=== PATIENT | male | born 1980 | race Caucasian/White ===

== ENCOUNTER 2024-05-07 12:15 | Inpatient (IN) | payer OTHER, SELFPAY ==
--- NOTE | 2024-05-07 08:36 | ED.GENMED ---
History of Present Illness
General
Chief Complaint: Seizure
Source: patient, records and ambulance crew
Exam Limitations: none
Time Seen by Provider: 05/07/24 08:33
Nursing documentation reviewed up to this point in time: agreed with
History of Present Illness
History of Present Illness:
43-year-old male presents emergency department after a seizure. His sister noted a seizure this morning where he was unresponsive with stiffening in all limbs. EMS noted 30 second seizure at about 735 on arrival. He has a history of seizures but
is not on any antiepileptic medication.
Past History
Past History
ED Past Medical History: GERD, HTN, NIDDM, Hypothyroidism, Psychiatric (generalized anxiety disorder, major depression) and Other (gout, frequent headaches, ETOH abuse, Pancreatitis, avascular necrosis of the right hip)
ED Past Surgical History: Appendectomy and Other (cyst removal)
Social History
Tobacco: Smoker
Alcohol: Binge drinker
Drug: Other
Personal: Single
Living: with family (mother)
Employment: Not employed
Family History
Family History: CAD
Review of Systems
Review of Systems
Allergies reviewed?: Yes
All Other Systems: Not applicable
Constitutional: Reports no symptoms; Denies fever
EENT: Reports no symptoms
Respiratory: Reports no symptoms
Cardiac: Reports no symptoms
ABD/GI: Reports no symptoms
: Reports no symptoms
Musculoskeletal: Reports no symptoms
Skin: Reports no symptoms
Neurological: Reports other (Seizure)
Endocrine: Reports no symptoms
Hematologic/Lymphatic: Reports no symptoms
Psychiatric: Reports no symptoms
Phy Exam
Physical Exam
Physical Exam:
Physical Exam
General: Awake, afebrile
Neck: supple. no meningeal signs. normal posterior pharynx
Heart: s1/s2 regular rate and rhythm, no murmur. equal radial
pulses.
HEENT: Pupils equal round reactive to light, EOMI, dried blood in mouth
Lungs: no acute respiratory distress. clear bilaterally
Abdomen: normal bowel sounds. not tender. no CVAT
Neuro: alert and oriented. no focal neurological deficits cranial nerves II through XII intact
Skin: no rash
Psychiatric: well kept. interactive and cooperative
Extremities: no edema. no calf tenderness. negative homans. good distal pulses
Course
Orders/Labs/Results
Orders:
Orders
05/07/24 Breakfast
1800 calorie (15 carb) Diabetic
At Your Request: Full Participation
05/07/24 08:33
Electrocardiogram (*1) Stat
Reason for Study: Other
Other Reason for Exam: seizure
EKG- Treatment ONCE
IV Insert/Care/Rem.- Treatment PRN
Levetiracetam Injectable [Keppra] 1,000 mg IV NOW STA
05/07/24 08:40
Levetiracetam Injectable [Keppra] 3,000 mg IV NOW STA
05/07/24 08:48
Shoulder, Right 2 Views [CR Shoulder - Right Min 2 View] Urgent
Comment:
Reason For Exam: right shoulder pain after seizure
05/07/24 08:50
Complete Blood Count/With Diff Urgent
Comprehensive Metabolic Panel Urgent
Creatine Phosphokinase Urgent
Comment: ADD ON
Free T4 Urgent
Glycohemoglobin (HgbA1c) Urgent
TSH Reflex To Free T4 Urgent
Comment: ADD ON
05/07/24 09:44
0.9% Sodium Chloride 1000 ml [Nss] 1,000 ml IV BOLUS
05/07/24 09:47
Add On- LAB Stat
Tests Added?: ck
05/07/24 09:57
EEG, 41-60 minutes Routine
Reason for Exam: Epilepsy
05/07/24 09:58
CT Head W/o Iv Contrast Urgent
Comment:
Reason For Exam: seizures
05/07/24 10:00
Urine Reflex Culture from UA [Urinalysis Reflex To Culture] Urgent
Lactated Ringers [Lr] 1,000 ml IV 150 mls/hr
05/07/24 10:02
Add On- LAB Routine
Tests Added?: tsh with reflex free t4, hgba1c
Drug Screen, Urine [Urine Drug Abuse Screen] Urgent
05/07/24 10:03
NEUROLOGY CONSULT Routine
Consulting Provider: Casey Cevallos
Was physician already notified: Yes
05/07/24 10:48
Blood Culture Q30M
GONZÁLEZ Source: Blood/Venous
Specimen Description:
Blood Culture Q30M
GONZÁLEZ Source: Blood/Venous
Specimen Description:
05/07/24 12:04
Admit/Transfer Patient As Directed
Co-Sign Provider:
Level of Care: Inpatient admission
Assign to:: Telemetry
Physician / Group: [email or web address]/medicine
Transfer to: Telemetry
Diagnosis: seizures, jewel
Reason for Telemetry: Arrhythmia
Date to Stop Telemetry: 05/10/24
Time to Stop Telemetry: 11:00
Reason for Hospitalization: seizures, jewel
Expected length of stay greater than two midnights?: Yes
ELOS- Estimated Length of Stay in days: 3
I certify the patient meets the requirements for IP care: Yes
05/07/24 12:07
Code Status As Directed
Resuscitation Status: Full Code
05/07/24 14:38
Bisacodyl [Dulcolax] 10 mg RECTAL [id number] PRN
Docusate W/Senna [Senokot-S] 1 tablet PO BIDPRN PRN
Lisinopril [Zestril] 20 mg PO DAILY
Polyethylene Glycol Powder [Miralax] 17 grams PO DAILYPRN PRN
05/07/24 14:38
Activity As Directed
Activity Level: As Tolerated
Neurological Checks As Directed
Frequency: Per unit guidelines
Vital Signs As Directed
Frequency: Per unit guidelines
Ot Eval And Treat Routine
Pt Eval And Treat Routine
Activity Level: As Tolerated
Speech Therapy Eval & Treat Routine
DX Deep Vein Thrombosis Video Routine
05/07/24 16:00
Gabapentin [Neurontin] 600 mg PO TID
Heparin 5,000 units SC Q8
05/07/24 16:30
Insulin Aspart Pen [Novolog Flexpen] 8 units SC AC
05/07/24 22:00
Insulin Glargine Lantus [Lantus] 38 units Subcutaneous Insulin Syringe [Syringe-Insulin] 0 unit SC HS
05/08/24 06:00
Complete Blood Count/No Diff IN AM
Comprehensive Metabolic Panel IN AM
Creatine Phosphokinase IN AM
Magnesium IN AM
Levothyroxine [Synthroid] 125 mcg PO DAILY@0600
05/08/24 08:00
Atorvastatin [Lipitor] 20 mg PO DAILY
FOLic ACID [Folvite] 1 mg PO DAILY
Metoprolol Xl [Toprol Xl] 25 mg PO DAILY
Pantoprazole [Protonix] 40 mg PO DAILY
Venlafaxine Extended Release [Effexor Xr] 150 mg PO DAILY
05/10/24 11:00
DC Protocol for Telemetry ONCE
Abnormal Lab Results
05/07/24
08:50
WBC 20.2 H 10^3/uL
(4.8-10.8)
RBC 4.56 L 10^6/uL
(4.70-6.10)
MCV 94.1 H fL
(80.0-94.0)
MCHC 32.6 L g/dL
(33.0-37.0)
Abs Immat Gran (auto) 0.1 H 10^3/uL
(0-0.05)
Absolute Neuts (auto) 17.0 H 10^3/uL
(1.4-6.5)
Absolute Monos (auto) 1.6 H 10^3/uL
(0.1-0.6)
Neutrophils % 83.9 H %
(42.2-75.2)
Lymphocytes % 7.6 L %
(20.5-51.1)
Sodium 148 H mmol/L
(135-145)
Chloride 112 H mmol/L
(98-107)
Carbon Dioxide 21 L mmol/L
(22-30)
BUN 22 H mg/dl
(9-20)
Creatinine 2.3 H mg/dL
(0.7-1.3)
Glucose 162 H mg/dl
(70-99)
Hemoglobin A1c 5.9 H %
(4.0-5.6)
Calcium 11.0 H mg/dl
(8.4-10.2)
AST 69 H U/L
(17-59)
Creatine Kinase 1187 H U/L
(55-170)
TSH (Reflex) 0.33 L uIU/ml
(0.47-4.68)
05/07/24 08:50
05/07/24 08:50
Vital Signs
Initial and Last Documented VS:
Initial Vital Signs
Pulse Resp
118 19
05/07/24 08:36 05/07/24 08:36
Last Documented Vital Signs
Temp Pulse Resp BP Pulse Ox
98.4 F 102 17 114/66 98
05/07/24 08:44 05/07/24 12:45 05/07/24 12:45 05/07/24 08:44 05/07/24 12:30
MDM/Problems Addressed
Differential Diagnosis Includes:
Seizure, metabolic abnormalities
MDM/Problems Addressed:
43-year-old male with seizure, multiple today. Will start 3 g levetiracetam, right shoulder pain, will xray. Plan to admit to hospitalist.
Chronic conditions affecting care: DM and Neurological disorder (seizures)
Acute Exacerbation and/or Progression of Chronic Illness: DM and Neurological disorder (seizures)
*Radiology
Radiology exam reviewed: preliminary read by ED provider (Right shoulder x-ray no acute findings)
*Pulse Oximetry
Patient hypoxic: no
*EKG
Interpreted by ED Provider?: Yes
EKG Intrepretation Date: 05/07/24
EKG Intrepretation Time: 08:44
Interpretation: abnormal
Comparison EKG: changes noted
Heart Rate: 117
Rate: tachycardiac
Rhythm: sinus tachycardia
[place]: normal axis
Interval: normal interval
QRS Pattern: normal QRS
Ischemia: no ischemia
*Director Of Design Interpretation
Rate: tachycardiac
Interpretation: abnormal
Heart Rate: 115
Rhythm: sinus tachycardia
*Critical Care Note
Total Time (30-74mins, 75-104mins- exclusive of procedures): Not Applicable
Data Reviewed
Review of Other/Old Records Reveals: Records (Seen by Dr. Cevallos, neurology on 08/29/2021 on consult for seizure. Was started on 3 g Keppra)
Source: records
Patient Management
Social determinants of health affecting care: Living situation
Discussion with other providers: Hospitalist and Manager Car (Neurologist, Dr. Cevallos)
Escalation/DeEscalation of care consider admission/obs:
Admit indicated
ED Attending Note
-
Portions of this chart may have been created with voice recognition software.� Occasional wrong word or��sound alike� substitutions may have occurred due to the inherent limitations of voice recognition software.
Discharge Plan
Departure
Patient Disposition: Admit
Date of Disposition: 05/07/24
Time of Disposition: 09:33
Admit to: IMU
Presentation/result/management discussed w/ accepting MD/DO: Hospitalist
Patient with high blood pressure during this ER visit?: Yes
Condition: Fair
Discharge Problem:
Seizure, Acute renal failure, Non compliance w medication regimen
Interventions
Interventions:
*Risk Screen - Suicide Last Done: 05/07/24 14:29
*General Assessment Last Done: 05/07/24 10:19
*Neglect/Abuse Screening Last Done: 05/07/24 14:22
ED- Fall Risk Assessment Last Done: 05/07/24 10:36
*ED COVID-19 Vaccine History Last Done: 05/07/24 14:29
*Nursing Disposition Last Done: 05/07/24 14:22
ED- Cardiac Assessment Last Done: 05/07/24 10:36
ED- Neurological Assessment Last Done: 05/07/24 10:36
ED- Pulmonary Assessment Last Done: 05/07/24 10:36
Discharge Date and Time
Discharge Date/Time: 05/07/24 14:23
[2024-05-07 08:39] VITALS: BP 114/66
[2024-05-07 08:43] VITALS: BMI 33.3
[2024-05-07 08:44] VITALS: BP 114/66
[2024-05-07] MEDS: KEPPRA 3000 MG IV (08:59)
[2024-05-07 09:12] LABS: % Basophils 0.2 % (0-2); % Immature Granulocytes 0.5 % (0-0.5); % Lymphocytes 7.6 % (20.5-51.1); % Monocytes 7.8 % (1.7-9.3); % Neutrophils 83.9 % (42.2-75.2); Absolute Basophils 0.1 10^3/uL (0-0.2); Absolute Immature Granulocytes 0.1 10^3/uL (0-0.05); Absolute Lymphocytes 1.5 10^3/uL (1.2-3.4); Absolute Monocytes 1.6 10^3/uL (0.1-0.6); Hematocrit 42.9 % (39.0-52.0); Mean Corp Hgb Conc. 32.6 g/dL (33.0-37.0); Mean Corpuscular Hgb 30.7 pg (27.0-31.0); Mean Corpuscular Volume 94.1 fL (80.0-94.0); Mean Platelet Volume 9.9 fL (7.4-10.4); Nucleated Red Blood Cells % 0 % (-); Platelet Count 319 10^3/uL (130-400); Red Blood Cell Count 4.56 10^6/uL (4.70-6.10); Red Cell Dist. Width 12.7 % (11.5-14.5); White Blood Cell Count 20.2 10^3/uL (4.8-10.8)
[2024-05-07 09:26] LABS: ALT (SGPT) 35 U/L (0-50); AST (SGOT) 69 U/L (17-59); Albumin 4.5 g/dl (3.5-5.0); Alkaline Phosphatase 98 U/L (38-126); Blood Urea Nitrogen 22 mg/dl (9-20); Carbon Dioxide 21 mmol/L (22-30); Chloride 112 mmol/L (98-107); Estimated Creatinine Clearance 54 ml/min; Glucose 162 mg/dl (70-99); Potassium 4.1 mmol/L (3.5-5.1); Sodium 148 mmol/L (135-145); Total Bilirubin 0.6 mg/dl (0.2-1.3); Total Protein 7.7 g/dl (6.3-8.2); eGFR 35.47
[2024-05-07] MEDS: NSS 1000 IV (09:47)
--- NOTE | 2024-05-07 09:49 | PHANOTE ---
med rec fe- patient was unable to be questioned on home medications, so list was compiled from pharmacy records and [facility] records.
--- NOTE | 2024-05-07 09:49 | HPS.HSE ---
Family Physician
-
Family Physician:
Chief Complaint
-
seizures
History of Present Illness
43-year-old male past medical history of prior alcohol withdrawal seizure presents with seizure. Sister noted seizure in the morning, associated with unresponsiveness and stiffening of extremities. Pt does not remember event. Believes he was
sleeping then he woke up with blood in hismouth. Patient acknowledges having meth. Also noted to have sister acknowledging to have most likely meth on the table as well. small Tongue laceration present, non bleeding, otherwise physical is grossly
unremarkable. Otherwise, patient remains afebrile, normotensive, 90% on room air, respiratory rate 17, pulse 102. Remarkable lab values�white count 20.2, sodium 148, creatinine 2.3, hemoglobin A1c 5.9, AST 69, CK 1187. CT head without acute
abnormalities, shoulder x-ray without any acute abnormalities. UA, UDS still pending. Was given 1 L bolus, Keppra in the ED.
Medical History
Past Medical History
Past Medical History: Reports Other (GERD, HTN, NIDDM, Hypothyroidism, Psychiatric (generalized anxiety disorder, major depression) and Other (gout, frequent headaches, ETOH abuse, Pancreatitis, avascular necrosis of the right hip))
Past Surgical History: Reports Other (Appendectomy and Other (cyst removal))
Social History
Alcohol: Binge drinker
Personal: Single
Living: With Family
Employment: Not Employed
Family History
Family History: CAD
Allergies / Home Medications
Allergies reflects when Allergies were last updated in [employer].
Home Medications with original date entered in [employer]
Allergy/Medication List:
Allergies
Allergy/AdvReac Type Severity Reaction Status Date / Time
No Known Allergies Allergy Verified 05/25/21 17:07
Home Medications
folic acid 1 mg tablet 1 mg PO DAILY 06/11/21
pantoprazole 40 mg tablet,delayed release 40 mg PO DAILY #30 tabs 06/11/21
venlafaxine 150 mg capsule,extended release 24 hr (Effexor XR) 150 mg PO DAILY Mental Health/Anxiety 08/29/21
atorvastatin 20 mg tablet 20 mg PO DAILY 05/07/24
gabapentin 600 mg tablet 600 mg PO TID 05/07/24
insulin glargine 100 unit/mL (3 mL) subcutaneous pen (Lantus Solostar U-100 Insulin) 38 unit SC HS 05/07/24
insulin lispro 100 unit/mL subcutaneous pen 8 unit SC AC 05/07/24
levothyroxine 125 mcg tablet 125 mcg PO DAILY 05/07/24
lisinopril 20 mg tablet 20 mg PO DAILY 05/07/24
metoprolol succinate 25 mg tablet,extended release 24 hr 25 mg PO DAILY 05/07/24
Review of Systems
-
History Source: Patient
A 12 point ROS was completed and negative except as noted: Yes
Physical Exam
Vital Signs
Vital Signs
Temp Pulse Resp BP
98.4 F 117 20 114/66
05/07/24 08:44 05/07/24 08:44 05/07/24 08:44 05/07/24 08:44
Physical Exam
General: Well Developed and Well Nourished
HEENT: NormoCephalic and Other (Small tongue laceration, no longer bleeding)
Respiratory: Clear
Cardiac: Carotid Bruits
GI: Soft and Non Tender
Musculoskeletal: No Clubbing
Skin: Warm and Dry
Neuro: Awake, Alert, Oriented and AO x 3
Hematologic/Lymphatic: No Lymphadenopathy
Psych: Calm
Laboratory Results
-
05/07/24 08:50
05/07/24 08:50
Laboratory Results
Total Bilirubin 0.6 mg/dl (0.2-1.3) 05/07/24 08:50
AST 69 U/L (17-59) H 05/07/24 08:50
ALT 35 U/L (0-50) 05/07/24 08:50
Alkaline Phosphatase 98 U/L (38-126) 05/07/24 08:50
Data Reviewed
-
Diagnostic Radiology: Image Personally Visualized and interpreted and Report Reviewed by me
CT Scan: Image Personally Visualized and interpreted and Report Reviewed by me
Lab Data: Labs Reviewed by me
Impression/Plan
-
IMPRESSION:
43-year-old male past medical history of prior alcohol withdrawal seizure presents with seizure. Sister noted seizure in the morning, associated with unresponsiveness and stiffening of extremities.
PLAN:
#Seizures
�Most likely Methamphetamine related, patient denies recent alcohol use
-bit tongue
� Neurology consulted
� EEG, CT head ordered
� IV Ativan as needed
� Follow-up UDS, UA
�Avoid Keppra if EEG is unremarkable, and most likely secondary to polysubstance abuse. Defer to neurology
-pain control
# SIRS with most likely noninfectious source
� Most likely reactive in setting of seizures, Methamphetamine
� Follow-up UA, blood cultures
� Follow fever trend, white count
#MT
� Possibly secondary to prerenal etiology with dehydration versus ATN in setting of possible rhabdomyolysis
� Continue aggressive IV fluids
� Does not appear fluid overloaded
� Monitor with IV fluids, resuscitation
� Follow-up CPK
-hold ACEI
# #Rhabdomyolysis
� Most likely secondary to CKD
� Continue aggressive IV fluid resuscitation
#Hypernatremia
� Most likely secondary to dehydration
� Continue to monitor with resuscitation/fluids
#Essential Hypertension
-Monitor blood pressure
-Hold ACEI
-resume other bp meds
#Diabetes Mellitus, insulin-dependent
-Check hemoglobin A1c
-Continue Lantus and NovoLog
-Monitor sugars and continue coverage insulin
#Diabetic neuropathy
-Continue gabapentin
#GERD
-Continue Protonix
#Hypothyroidism
-Check TSH
-Continue Synthroid
#Polysubstance abuse
� Educated on cessation
DVT prophylaxis: HSQ
CODE STATUS: Full code
[2024-05-07 10:40] LABS: Creatine Phosphokinase 1187 U/L (55-170)
[2024-05-07] MEDS: LR IV (10:43)
[2024-05-07 10:59] LABS: Glycohemoglobin (HgbA1c) 5.9 % (4.0-5.6)
[2024-05-07] MEDS: LR 1000 IV ×2 (11:26→18:27)
[2024-05-07 11:55] LABS: TSH Reflex To Free T4 0.33 uIU/ml (0.47-4.68)
--- NOTE | 2024-05-07 12:19 | CON.NEURO4 ---
Consultation - Neurology 4
-
CONSULTING PHYSICIAN: Richelle Cevallos
REFERRING PHYSICIAN: Hospitalist
DICTATED BY: Richelle Cevallos
DATE/TIME OF REQUEST: 05/07/24
DATE/TIME OF CONSULTATION: 05/07/24
Reason for Consultation: Seizure
History of Present Illness:
Patient is a 43-year-old male with a past history of previous alcohol abuse, hypertension, diabetes, anxiety/depression, methamphetamine use, previous seizure presented to hospital after seizure event witnessed by his sister. The event appeared to
be generalized seizure with generalized stiffening. EMS was called and they noted short lasting seizure this morning around 730. He was given levetiracetam 3000 mg total in the ER.
Patient relates that he has been using methamphetamine most days of the week, denies any active alcohol use. He is unclear on if he is having seizures recently, he has poor recall of a previous hospitalization in August 2021 for I witnessed to
have him have a focal and then generalized seizure and was monitored on continuous EEG for short period. He relates that he does take gabapentin for muscle pain but does not take any levetiracetam or chronic antiseizure medications otherwise.
Endorses right shoulder pain.
Past Medical History: Previous seizure, diabetes, depression, anxiety, previous alcohol abuse, methamphetamine abuse, hypertension
Surgical History: Appendectomy
Family History: No family history of seizures
Social History: Lives at home with roommate, denies alcohol use, endorses active methamphetamine use, endorses tobacco smoking
Allergies: No known drug allergies
Review of Symptoms:
Patient denies any fever, headache, chest pain, shortness of breath, GI or symptoms.
Physical Exam:
Middle-age man, no head trauma, oropharynx and lips have dried blood, left tongue laceration seen, eyes are clear, neck full range of motion, breathing unlabored, abdomen obese soft nontender, no lower extremity edema or rashes 16
Neurologic Examination:
The patient is awake, alert and oriented x 3. He is able to follow commands and answer questions appropriately. There is no aphasia or dysarthria. On cranial nerve assessment, pupils are 3 mm bilateral, round and reactive to light and
accommodation. Visual [place] are full. Extraocular movements are intact. Facial sensations are intact and bilaterally symmetrical, there is no facial asymmetry. Hearing is intact bilaterally to normal conversation volume. Tongue palate and uvula
are midline. Sternocleidomastoid strengths are full bilaterally. Motor strengths are 5/5 arm flexion bilaterally and 5/5 hip flexion bilaterally on medical research [place] scale. Some pain on right shoulder pain prohibits abduction. There is no
drift or involuntary movement noted. Deep tendon reflexes are 2+ bilateral upper and lower extremities and Babinski is absent bilaterally. Intact to light touch throughout. Coordination is intact by finger to nose bilaterally.
Neuro Imaging: CT head non contrast unremarkable
Impressions
1. Generalized seizures occurred in the context of methamphetamine use. Previous history of focal seizure in August 2021. EEG largely unremarkable CT head noncontrast unremarkable. Best estimation of the patient is unlikely to have epilepsy
and rather is having seizures from prolonged and frequent use of methamphetamine. Alcohol or benzodiazepine withdrawal would also be potential cause.
2. Acute kidney injury present
3.
4.
Recommendations:
1. Check EEG
2. Would monitor off antiseizure medications
3. Monitor for signs of methamphetamine and/or alcohol and benzodiazepine withdrawal
4. Not recommending further brain imaging
5. Will treat further seizures with lorazepam 1 to 2 mg as needed
6. Follow renal function treating MT, IV fluids for mild rhabdomyolysis
7. Drug counseling and rehabiliation options
8. Follow up UDS
9. Continue Gabapentin same home dose
10. Can use symptomatic relief for tongue bite
Will follow as needed call with questions and concerns
Discussed patient care with: Patient, Dr Ceron
[2024-05-07 12:23] LABS: Free T4 1.48 ng/dl (0.78-2.19)
--- NOTE | 2024-05-07 12:23 | EDCM ---
CM entered patient's room. Patient observed with eyes closed, chest rising and falling, and mouth opened with dried blood covering his teeth. CM attempted to arouse patient, but was unsuccessful. CM called patient's only contact on the chart, Elaine.
Elaine confirmed that she is his sister and has come back into the home about 2 months ago.
Elaine assisted with patient's assessment. Elaine shared that patient lives with her and their mother. 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 His PCP is Ivan Quinones. Elaine believes patient uses a pharmacy in [place], but
unsure of which one. Patient is independent. He does not drive. He lost his license due to a DUI. He does not own any DME. His mother provides transportation for patient. His mother will provide transportation once he is discharged from the ""hospital. Elaine is unsure of patient's financial status, but does believe he continues to self items on [employer] for a friend; otherwise, he is not working. He is not a .
Elaine shared that patient has schizophrenia and has delusions. She initially found him with blood dripping out of his mouth and asked what had happened. Elvin would not share. Elaine stated that Yaakov will 'punish' himself and the family and
will not take his medications. She asked him about how many days has he not been taking his medications. Elvin stated that it's been >3 days.
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 Per Elaine's mother, patient has had his records transferred to [facility].
A bag of what might've been believed to be meth, was found on kitchen counter, in patient's home. CM made attending provider aware and noted that there was a urine drug screen ordered by provider. Attending stated that patient has already admitted
to using the meth.
CM will continue to follow case and is available for further assistance.
--- NOTE | 2024-05-07 14:01 | EEG.RPT ---
Electroencephalogram Report
Recording
Date of EE05/07/24
Type of EEG: Routine
Length of EEG recordin mins
Done with Video Recording: Yes
Patient Status: Emergency Room
Recording Conditions: Awake, Drowsy, Asleep, Moving and Confused
Hyperventilation Performed: No
Photic Stimulation Performed: Yes
Report
METHODS
A 21 channel digitized electroencephalogram was performed at [facility]. The 10/20 international system of electrode placement was used. In addition to EEG, the patient was monitored for EKG. The duration of the recording was 42 minutes.
BACKGROUND
During the awake state, with the eyes closed, the background consisted of a normal amplitude, 11 Hertz posterior reactive rhythm that attenuated appropriately with eye opening. Beta activity was distributed diffusely with an anterior predominance.
There was a normal anterior-posterior voltage gradient. With eye opening the background activity changed to a low voltage mixture of alpha, beta, and occasional theta range frequencies. There were no significant asymmetries of background activity
noted.
SLEEP
Stage II sleep was obtained and consisted of symmetrical sleep spindles and vertex sharp waves.
HYPERVENTILATION
Hyperventilation was not performed.
PHOTIC STIMULATION
Photic stimulation using a step-alcazar increase in photic frequency varying from 1-31 Hertz resulted in no driving responses but no appearance of abnormal activity.
ABNORMAL EEG ACTIVITY
None
CLINICAL EVENTS
Several clinical events were captured including leg movement, stretching of legs, lifting his head, head movement and turning, tapping his fingers and feet and 'rambling.' None of these had any clear epileptiform abnormalities associated; normal
waking background was seen throughout; the study was obscured at times by movement and muscle artifact.
INTERPRETATION AND CLINICAL CORRELATION
This EEG is normal during the awake and sleep states
Several clinical events were captured including leg movement, stretching of legs, lifting his head, head movement and turning, tapping his fingers and feet and 'rambling.' None of these had any clear epileptiform abnormalities associated.
No seizures were noted during the recording. A normal EEG, in itself, does not rule out a diagnosis of epilepsy. If clinical suspicion for seizure persists, a sleep-deprived and/or prolonged recording may be warranted.
[2024-05-07 14:29] VITALS: BMI 33.3
[2024-05-07 15:00] VITALS: BP 116/95
--- NOTE | 2024-05-07 15:27 | CON.MD ---
Consultation - Medical
-
patient seen chart reviewed discussed w nursing. the patient is a 43 year old male who comes to in the wake of what is presumed to be a sz secondary to meth use. he was here in 2020 and seen by psych for a sz presumed secondary to etoh. he gave
up etoh sometime after but started to use meth. in the last few months he has used meth daily. he says he is very unhappy with his life. he has tried therapy, medications etc and said nothing helps him change his life. 'i don't like my life...'
he is currently taking effexor xr 150 mg and prior had taken lexapro for a few years. he does not feel either have been helpful. also says he has tried prozac and paxil. patient has difficulty sleeping. appetite is okay. he does not enjoy much.
energy level poor. he has had fleeting suicidal thoughts but no intent or plan. he says he would not take his life. he lives with his mother and would not hurt her. there is nothing to suggest psychosis.
past psych hx patient has seen psychiatrists none in the past couple of years. his effexor prescribed by pcp. he has also engaged in therapy although not recently. patient has been to rehab several times. he cannot tell me the names of rehabs.
says he is still rather slow thinking after the sz
medical hx admitted for sz see above hx hld pancreatitis hypothyroid gout htn avascular necrosis of femoral head fatty liver niddm gerd headaches alopecia wbc elevated likely stress rxn uds ua pending sodium 148 cr 2.3 eeg without
sz cat brain neg a1c 5.9 ast 69 cpk 1187 glucose 162 no tox screen in chart
fh sister substance abuse
substance abuse meth as above cannabis occasionally sober from etoh three years
social hx lives w mom hs grad worked some jobs not working since 2020 denies physical sexual abuse few friends or supports
mse alert ox3 cooperative a little sleepy speech and thought process nl affect subdued mood is depressed denies si aver intelligence insight judgment lacking
dx unspecified depression stimulant use disorder unspec etoh use d/o in remission
plan for now continue w effexor. consider increase. i would recommend in patient rehab or possibly php but patient is saying he is not interested. agrees to talk to b cares consult ordered. if patient becomes agitated could use ativan for minor
agitation or seroquel if he is severely agitated. at this point he is rather on the sedated side. psych will see him tomorrow. do not feel one to one is needed.
[2024-05-07] MEDS: ZESTRIL 20 MG PO (15:35)
[2024-05-07] MEDS: NEURONTIN 600 MG PO ×2 (15:35→23:00)
[2024-05-07] MEDS: ROXICODONE 5 MG PO ×2 (15:36→23:01)
[2024-05-07] MEDS: HEPARIN 5000 UNITS SC ×2 (15:38→23:02)
--- NOTE | 2024-05-07 16:22 | PTOTSP ---
SPEECH THERAPY SWALLOW EVALUATION:
Patient exhibits grossly functional oropharyngeal swallow at this time. However, patient remains at risk for dysphagia/aspiration given impulsivity and enlarged tongue secondary to bite. Limited assessment of swallow function given patient refusal
of solids at this time. Given lack of significant predisposing dysphagia risk factors and grossly functional swallow at bedside, suspect patient would be appropriate to continue to tolerate Regular texture diet and thin liquids at this time. WBC
currently elevated. No CXR available. Recommend Regular texture diet (selecting soft textures), thin liquids. Medications whole with liquid, one at a time. Aspiration precautions: Upright positioning, small single sips, small bites, slow rate of
intake, monitor CXR and labs. Oral care 3x/day to reduce risk for nosocomial infection. Monitor for signs of aspiration. Speech therapy to follow, assess diet tolerance and modify as appropriate, provide education regarding aspiration risks and
precautions, and provide continued diagnostic swallow therapy as appropriate.
RECOMMEND:
1) Regular texture diet (selecting soft textures), thin liquids
2) Medications whole with liquid, one at a time
3) Aspiration precautions: Upright positioning, small single sips, small bites, slow rate of intake, monitor CXR and labs. Oral care 3x/day to reduce risk for nosocomial infection. Monitor for signs of aspiration.
4) Speech therapy to follow
[2024-05-07 16:29] LABS: Urine Albumin Trace (Neg - Trace); Urine Bilirubin Negative (Negative); Urine Character Clear (Clear); Urine Color Yellow; Urine Glucose Negative (Negative); Urine Ketone Trace (Negative); Urine Leukocyte Trace (Negative); Urine Nitrite Negative (Negative); Urine Occult Blood Trace (Negative); Urine Urobilinogen Negative (Neg - 1+)
[2024-05-07 16:49] LABS: Amphetamines Positive (Negative); Barbiturates Negative (Negative); Benzodiazepines Negative (Negative); Buprenorphine Negative (Negative); Cocaine Negative (Negative); Marijuana Negative (Negative); Methadone Negative (Negative); Methamphetamines Positive (Negative); Opiates Negative (Negative); Phencyclidine Negative (Negative); Tricyclic Antidepressants Negative (Negative)
[2024-05-07 16:51] LABS: Urine Red Blood Cell 0-2 /HPF (0-2); Urine Squamous Cell 0-2 /LPF (Few)
[2024-05-07 16:53] LABS: Glucose - Point of Care 127 mg/dl (70-99)
[2024-05-07 17:03] LABS: Fentanyl, Urine Negative (Negative)
[2024-05-07] MEDS: NOVOLOG FLEXPEN 8 UNITS SC (17:49)
[2024-05-07 20:43] VITALS: BP 119/83
[2024-05-07 21:16] LABS: Glucose - Point of Care 115 mg/dl (70-99)
[2024-05-07] MEDS: LANTUS 0.380000000000000004 UNITS SC (23:00)
[2024-05-07 23:40] VITALS: BP 144/87
[2024-05-08] VITALS (7 sets, daily range): BP systolic 113–165; BP diastolic 74–99; PULSE 95; O2SAT 93
[2024-05-08] MEDS: LR 1000 IV ×4 (02:45→18:20)
[2024-05-08] MEDS: ROXICODONE 5 MG PO ×3 (05:33→22:07)
[2024-05-08] MEDS: SYNTHROID 125 MCG PO (05:33)
[2024-05-08 07:47] LABS: Hematocrit 35.6 % (39.0-52.0); Hemoglobin 12.2 g/dL (13.0-18.0); Mean Corp Hgb Conc. 34.3 g/dL (33.0-37.0); Mean Corpuscular Hgb 31.3 pg (27.0-31.0); Mean Corpuscular Volume 91.3 fL (80.0-94.0); Platelet Count 260 10^3/uL (130-400); Red Cell Dist. Width 12.5 % (11.5-14.5); White Blood Cell Count 18.3 10^3/uL (4.8-10.8)
[2024-05-08 08:09] LABS: ALT (SGPT) 41 U/L (0-50); AST (SGOT) 112 U/L (17-59); Albumin 3.6 g/dl (3.5-5.0); Alkaline Phosphatase 94 U/L (38-126); Blood Urea Nitrogen 15 mg/dl (9-20); Calcium 9.6 mg/dl (8.4-10.2); Carbon Dioxide 24 mmol/L (22-30); Chloride 105 mmol/L (98-107); Creatine Phosphokinase 1502 U/L (55-170); Estimated Creatinine Clearance > 125 ml/min; Glucose 103 mg/dl (70-99); Magnesium 1.6 mg/dl (1.6-2.3); Potassium 3.8 mmol/L (3.5-5.1); Sodium 138 mmol/L (135-145); Total Protein 6.3 g/dl (6.3-8.2); eGFR > 60.00
[2024-05-08 08:11] LABS: Glucose - Point of Care 101 mg/dl (70-99)
[2024-05-08] MEDS: HEPARIN 5000 UNITS SC ×2 (08:37→16:41)
[2024-05-08] MEDS: NEURONTIN 600 MG PO ×3 (08:37→22:20)
[2024-05-08] MEDS: EFFEXOR XR 150 MG PO (08:38)
[2024-05-08] MEDS: PROTONIX 40 MG PO (08:38)
[2024-05-08] MEDS: FOLVITE 1 MG PO (08:38)
[2024-05-08] MEDS: LIPITOR 20 MG PO (08:38)
[2024-05-08] MEDS: ZESTRIL 20 MG PO (08:39)
[2024-05-08] MEDS: TOPROL XL 25 MG PO (08:39)
[2024-05-08] MEDS: NOVOLOG FLEXPEN 8 UNITS SC ×3 (09:30→18:20)
--- NOTE | 2024-05-08 10:04 | CM ---
CM consult completed; suicide risk; ETOH withdrawal; Referral sent/acknowledged by [facility]
[2024-05-08 11:42] LABS: Glucose - Point of Care 110 mg/dl (70-99)
--- NOTE | 2024-05-08 12:44 | W.PN.UPDATE ---
Update Note
Progress Note Update
Psychiatry follow up. Chart reviewed. Patient had seizure secondary to meth use. He states his tongue is currently in pain but otherwise he is ok. He is not interested in any D&A treatment program and states he can stop using meth on his own. UDS
positive for meth/amph
MSE- good eye contact. cooperative. tongue healing. logical and goal directed. Denies SI/HI/AVH. no delusions. Limited insight. poor judgement. fully oriented.
A/P- 43 yo male with unspecified depression, stimulant use disorder and unspecified etoh use d/o in remission
Continue effexor (prescribed by PCP). decision to pursue D&A treatment or do a PHP program/outpatient mental health follow up is his and he is refusing at this time. Psychiatry will sign off. Contact team with additional questions if needed.
--- NOTE | 2024-05-08 13:17 | W.PN.NEURO.1 ---
Today's Communication / Plan
-
-Follow CK and renal function
-Monitor for signs withdrawal
-As needed Ativan for epileptic seizure
-Will avoid starting a new long-term seizure medication
-Seen by psychiatry appreciate assistance, encouraged drug treatment/rehabilitation for the future
Neuro Assessment/Plan
Assessment
1. Generalized seizures occurred in the context of methamphetamine use. Previous history of focal seizure in August 2021. EEG largely unremarkable CT head noncontrast unremarkable. Best estimation of the patient is unlikely to have epilepsy
and rather is having seizures from prolonged and frequent use of methamphetamine. Alcohol or benzodiazepine withdrawal would also be potential cause.
2. Acute kidney injury present, possibly due to direct muscle toxicity of methamphetamine, mild rhabdomyolysis seen could be from meth and seizure
Subjective/Objective
Subjective Data
Date of Service: May 08, 2024
No acute events, low grade temperature, no seizures
Objective Data
Vital Signs
Temp Pulse Resp BP Pulse Ox
97.6 F 89 18 144/97 92
05/08/24 11:22 05/08/24 11:22 05/08/24 11:22 05/08/24 11:22 05/08/24 11:22
Lab Results
05/08/24 07:13
05/08/24 07:13
Sodium 138 mmol/L (135-145) D 05/08/24 07:13
Potassium 3.8 mmol/L (3.5-5.1) 05/08/24 07:13
BUN 15 mg/dl (9-20) 05/08/24 07:13
Glucose 103 mg/dl (70-99) H 05/08/24 07:13
Calcium 9.6 mg/dl (8.4-10.2) 05/08/24 07:13
Ur Buprenorphine Negative (Negative) 05/07/24 16:11
Patient Allergies
No Known Allergies Allergy (Verified 05/25/21 17:07)
Review of Systems
-
History Source: Patient
All other systems: Reviewed and negative
Constitutional: No Symptoms
EENT: No Symptoms Reported
Respiratory: No Symptoms
Cardiac: No Symptoms
Abdomen/GI: No Symptoms
Genitourinary: No Symptoms
Musculoskeletal: No Symptoms
Skin: No Symptoms
Neuro: See existing Neuro Note
Endocrine: No Symptoms
Hematologic / Lymphatic: No Symptoms
Allergy / Immunology: No Symptoms
Physical Exam
-
General: Comfortable
Eyes: No Ptosis
HEENT: Other (Left tongue bite)
Neck: No Bruits Bilaterally
Cardiac: Regular Rhythm
GI: Normal Bowel Sounds
Skin: Warm and Dry; Negative Rash
Psych: Negative Confused or Agitated
Extended Neurological Exam
Mood & Affect: Mood Unremarkable and Affect Unremarkable
Attention Span & Concentration: Awake, Alert and Interactive
Memory: Unremarkable
Tremor: Hand Tremor Absent
Involuntary Movement: None
Speech: Quality Unremarkable and Quantity Unremarkable
Cranial Nerve II: Left Eye: Pupillary Reactivity Unremarkable
Cranial Nerve II: Right Eye: Pupillary Reactivity Unremarkable
Cranial Nerves III, IV, : Extraocular Movement: Extraocular Movement Full in all Directions
Cranial Nerve VII: Facial Symmetry: Normal Facial Symmetry
Muscle Strength, Overall: Full Throughout
Pronator Drift: No Drift in Upper Extremities
Touch Sensation: Unremarkable
Data Reviewed
-
CT Head: Report Reviewed and Image Reviewed
EEG: Report Reviewed
--- NOTE | 2024-05-08 13:58 | W.PN.HOSP.TC ---
Today's Communication/Plan
-
iv fluids
monitor ck
ativan prn
Assessment / Plan
Assessment / Plan
Physical Exam
General: Well Developed and Well Nourished
HEENT: NormoCephalic and Other (Small tongue laceration, no longer bleeding)
Respiratory: Clear
Cardiac: Carotid Bruits
GI: Soft and Non Tender
Musculoskeletal: No Clubbing; left hand erythema
Skin: Warm and Dry
Neuro: Awake, Alert, Oriented and AO x 3
Hematologic/Lymphatic: No Lymphadenopathy
Psych: Calm
43-year-old male past medical history of prior alcohol withdrawal seizure presents with seizure. Sister noted seizure in the morning, associated with unresponsiveness and stiffening of extremities.
PLAN:
#Seizures
�Most likely Methamphetamine related, patient denies recent alcohol use
-tongue laceration
� Neurology consulted
� EEG, CT head unremarkable
� -As needed Ativan for epileptic seizure
-Will avoid starting a new long-term seizure medication-pain control
-Psych: Broached on topic to pursue D&A treatment or do a PHP program/outpatient mental health follow up is his and he is refusing at this time.
#Cellulitis
-left hand erythema
-start cefazollin
# SIRS with most likely noninfectious source
� Most likely reactive in setting of seizures, Methamphetamine
� Follow-up blood cultures
-no urinary symptoms
� Follow fever trend, white count
#MT
� Possibly secondary to prerenal etiology with dehydration versus ATN in setting of possible rhabdomyolysis
� Continue aggressive IV fluids
�resolved
-hold ACEI today
#Rhabdomyolysis
� Most likely secondary to CKD
� Continue aggressive IV fluid resuscitation
-LR bolus today
#Hypernatremia
� Most likely secondary to dehydration
� Continue to monitor with resuscitation/fluids
-Resolved
#Essential Hypertension
-Monitor blood pressure
-Hold ACEI
-resume other bp meds
#Diabetes Mellitus, insulin-dependent
-Check hemoglobin A1c - 5.9
-Continue Lantus and NovoLog
-Monitor sugars and continue coverage insulin
#Diabetic neuropathy
-Continue gabapentin
#GERD
-Continue Protonix
#Hypothyroidism
-Check TSH
-Continue Synthroid
#Polysubstance abuse
� Educated on cessation
DVT prophylaxis: HSQ
CODE STATUS: Full code
Anticipated Discharge: 24 - 48 hours
Subjective/Interval History
-
Date of Service: May 08, 2024
No acute events overnight, had temperature 100.6 this morning
Objective Data
-
Labs:
Laboratory Results
05/08/24
07:13
WBC 18.3 H
Hgb 12.2 L
Hct 35.6 L
Plt Count 260
Sodium 138 D
Potassium 3.8
Chloride 105
Carbon Dioxide 24
BUN 15
Creatinine 0.8
Glucose 103 H
Calcium 9.6
Total Bilirubin 1.0
AST 112 H
ALT 41
Alkaline Phosphatase 94
Vital Signs:
Vital Signs
Temp Pulse Resp BP Pulse Ox
97.6 F 89 18 144/97 92
05/08/24 11:22 05/08/24 11:22 05/08/24 11:22 05/08/24 11:22 05/08/24 11:22
I&O
05/07/24 05/08/24 05/09/24
06:59 06:59 06:59
Intake Total 3600 / 3600
Output Total 800 / 800
Balance 2800 / 2800
Review of Systems
-
History Source: Patient
All other systems: Not reviewed unless documented
Data Reviewed
-
Diagnostic Radiology: Image personally visualized and interpreted and Report Reviewed by me
CT Scan: Image personally visualized and interpreted and Report Reviewed by me
Labs: Labs Reviewed by me
[2024-05-08] MEDS: ANCEF 10 IV (14:09)
[2024-05-08 17:11] LABS: Glucose - Point of Care 104 mg/dl (70-99)
[2024-05-08 21:20] LABS: Glucose - Point of Care 90 mg/dl (70-99)
--- NOTE | 2024-05-08 22:07 | W.PN.UPDATE ---
Update Note
Progress Note Update
HS accucheck 90. Due for 38 units lantus. Pt with little po intake today due to c/ sore tongue. Nurse noted tongue looks thrush like.
Encouraged HS snack if possible and will give a lower dose of lantus tonight.
Nystain s+s also ordered.
Encouraged soft foods for next day of so
[2024-05-08] MEDS: MYCOSTATIN ORAL SUSPENSION 5 ML PO (22:20)
[2024-05-08] MEDS: LANTUS 0.200000000000000011 UNITS SC (22:21)
[2024-05-08] MEDS: LANTUS SC (23:30)
[2024-05-09] MEDS: ANCEF 10 IV ×4 (00:02→22:08)
[2024-05-09] MEDS: HEPARIN 5000 UNITS SC ×4 (00:05→23:11)
[2024-05-09 03:26] VITALS: BP 130/80
[2024-05-09] MEDS: SYNTHROID 125 MCG PO (06:20)
[2024-05-09] MEDS: MYCOSTATIN ORAL SUSPENSION 5 ML PO ×4 (06:21→22:08)
[2024-05-09 07:00] VITALS: BP 123/85
[2024-05-09 07:10] LABS: Hematocrit 38.2 % (39.0-52.0); Hemoglobin 12.7 g/dL (13.0-18.0); Mean Corp Hgb Conc. 33.2 g/dL (33.0-37.0); Mean Corpuscular Hgb 30.9 pg (27.0-31.0); Mean Corpuscular Volume 92.9 fL (80.0-94.0); Mean Platelet Volume 10.2 fL (7.4-10.4); Platelet Count 219 10^3/uL (130-400); Red Blood Cell Count 4.11 10^6/uL (4.70-6.10); Red Cell Dist. Width 11.9 % (11.5-14.5); White Blood Cell Count 9.6 10^3/uL (4.8-10.8)
[2024-05-09 07:11] LABS: ALT (SGPT) 42 U/L (0-50); AST (SGOT) 104 U/L (17-59); Albumin 3.5 g/dl (3.5-5.0); Alkaline Phosphatase 88 U/L (38-126); Blood Urea Nitrogen 12 mg/dl (9-20); Calcium 9.5 mg/dl (8.4-10.2); Carbon Dioxide 27 mmol/L (22-30); Chloride 103 mmol/L (98-107); Creatine Phosphokinase 675 U/L (55-170); Estimated Creatinine Clearance > 125 ml/min; Glucose 90 mg/dl (70-99); Potassium 4.1 mmol/L (3.5-5.1); Sodium 137 mmol/L (135-145); Total Bilirubin 0.7 mg/dl (0.2-1.3); Total Protein 6.3 g/dl (6.3-8.2); eGFR > 60.00
[2024-05-09 07:47] LABS: Glucose - Point of Care 126 mg/dl (70-99)
[2024-05-09] MEDS: FOLVITE 1 MG PO (08:24)
[2024-05-09] MEDS: LR 1000 IV ×5 (08:24→14:46)
[2024-05-09] MEDS: LIPITOR 20 MG PO (08:24)
[2024-05-09] MEDS: ZESTRIL 20 MG PO (08:24)
[2024-05-09] MEDS: EFFEXOR XR 150 MG PO (08:24)
[2024-05-09] MEDS: TOPROL XL 25 MG PO (08:25)
[2024-05-09] MEDS: NEURONTIN 600 MG PO ×3 (08:25→22:08)
[2024-05-09] MEDS: PROTONIX 40 MG PO (08:25)
[2024-05-09] MEDS: LR IV ×2 (08:29→19:00)
--- NOTE | 2024-05-09 08:52 | W.PN.HOSP.TC ---
Addendum entered and electronically signed by Matthieu Ceron MD 05/09/24 13:18:
worked with pt - sig pain upon ambulation; pt continuing to reassess
Original Note:
Today's Communication/Plan
-
switch to cephalexin upon dc to complete 5 day course
f/u pcp outpatient
bmp, cbc outpatient in 1 week
avoid drug use
Assessment / Plan
Assessment / Plan
Physical Exam
General: Well Developed and Well Nourished
HEENT: NormoCephalic and Other (Small tongue laceration, no longer bleeding)
Respiratory: Clear
Cardiac: Carotid Bruits
GI: Soft and Non Tender
Musculoskeletal: No Clubbing; left hand erythema
Skin: Warm and Dry
Neuro: Awake, Alert, Oriented and AO x 3
Hematologic/Lymphatic: No Lymphadenopathy
Psych: Calm
43-year-old male past medical history of prior alcohol withdrawal seizure presents with seizure. Sister noted seizure in the morning, associated with unresponsiveness and stiffening of extremities.
PLAN:
#Seizures
�Most likely prolonged Methamphetamine use related, patient denies recent alcohol use
-tongue laceration
� Neurology consulted
� EEG, CT head unremarkable
� -As needed Ativan for epileptic seizure
-Will avoid starting a new long-term seizure medication-pain control
-Psych: Broached on topic to pursue D&A treatment or do a [facility] program/outpatient mental health follow up is his and he is refusing at this time.
#Cellulitis
-left hand erythema
-start cefazollin - switch to cephalexin 500mg qid to complete 5 day course total
# SIRS with most likely noninfectious source
� Most likely reactive in setting of seizures, Methamphetamine
� Follow-up blood cultures�no growth to date
-no urinary symptoms
� Follow fever trend, white count
#MT
� Possibly secondary to prerenal etiology with dehydration versus ATN in setting of possible rhabdomyolysis
� Continue aggressive IV fluids
�resolved
-Can resume KINZA inhibitor upon discharge
#Rhabdomyolysis
� Most likely secondary to CKD
� s/p aggressive IV fluid resuscitation
-improved
#Hypernatremia
� Most likely secondary to dehydration
� Continue to monitor with resuscitation/fluids
-Resolved
#Essential Hypertension
-Monitor blood pressure
-can resume ACEI upon dc
-resume other bp meds
#Diabetes Mellitus, insulin-dependent
-Check hemoglobin A1c - 5.9
-Continue Lantus and NovoLog
-Monitor sugars and continue coverage insulin
#Diabetic neuropathy
-Continue gabapentin
#GERD
-Continue Protonix
#Hypothyroidism
-Continue Synthroid
#Polysubstance abuse
� Educated on cessation
DVT prophylaxis: HSQ
CODE STATUS: Full code
More than 30 minutes spent in discharge including
Final examination of the patient
Summarizing hospital stay
Instructions for continuing care to all relevant caregivers
Preparation of discharge records, prescriptions, and referral forms
Total time spent (35 in minutes):
Anticipated Discharge: Today
Subjective/Interval History
-
Date of Service: May 09, 2024
No acute events, erythema improved left hand
Objective Data
-
Labs:
Laboratory Results
05/09/24
06:03
WBC 9.6
Hgb 12.7 L
Hct 38.2 L
Plt Count 219
Sodium 137
Potassium 4.1
Chloride 103
Carbon Dioxide 27
BUN 12
Creatinine 0.6 L
Glucose 90
Calcium 9.5
Total Bilirubin 0.7
AST 104 H
ALT 42
Alkaline Phosphatase 88
Vital Signs:
Vital Signs
Temp Pulse Resp BP Pulse Ox
98.2 F 86 18 123/85 97
05/09/24 07:00 05/09/24 07:00 05/09/24 07:00 05/09/24 07:00 05/09/24 07:00
I&O
05/08/24 05/09/24 05/10/24
06:59 06:59 06:59
Intake Total 3600 / 3600 4370 / 4370
Output Total 800 / 800 1775 / 1775
Balance 2800 / 2800 2595 / 2595
Review of Systems
-
History Source: Patient
All other systems: Not reviewed unless documented
Data Reviewed
-
Diagnostic Radiology: Image personally visualized and interpreted and Report Reviewed by me
CT Scan: Image personally visualized and interpreted and Report Reviewed by me
Labs: Labs Reviewed by me
[2024-05-09] MEDS: NOVOLOG FLEXPEN 8 UNITS SC ×2 (10:15→14:46)
[2024-05-09 11:00] VITALS: BP 123/71
[2024-05-09 12:05] LABS: Glucose - Point of Care 154 mg/dl (70-99)
--- NOTE | 2024-05-09 12:56 | W.DS.TRANS ---
DC Summary - Executive Manager
-
Discharge Instructions:
Discharge Diagnosis/Procedures #Seizures
#Cellulitis
#MT
#Rhabdomyolysis
Diet Low Cholesterol,Low Fat,Diabetic, Carb
Controlled
Activity As tolerated
Blood Work cbc, bmp in 1 week with pcp
Instructions:
Stand-Alone Forms:
Changes to Home Medications: Yes
Discharge Medications:
DC Medications w/original date entered in [facility]
venlafaxine 150 mg capsule,extended release 24 hr (Effexor XR) 150 mg PO DAILY Mental Health 08/29/21
atorvastatin 20 mg tablet 20 mg PO DAILY High Cholesterol 05/07/24
folic acid 1 mg tablet 1 mg PO DAILY Supplement 05/07/24
gabapentin 600 mg tablet 600 mg PO TID Pain 05/07/24
insulin glargine 100 unit/mL (3 mL) subcutaneous pen (Lantus Solostar U-100 Insulin) 38 unit SC HS Diabetes 05/07/24
insulin lispro 100 unit/mL subcutaneous pen 8 unit SC AC Diabetes 05/07/24
levothyroxine 125 mcg tablet 125 mcg PO DAILY@0600 Thyroid 05/07/24
lisinopril 20 mg tablet 20 mg PO DAILY Blood Pressure 05/07/24
metoprolol succinate 25 mg tablet,extended release 24 hr 25 mg PO DAILY Blood Pressure 05/07/24
pantoprazole 40 mg tablet,delayed release 40 mg PO DAILY Gastrointestinal Issue 05/07/24
cephalexin 500 mg capsule 500 mg PO QID 4 days #16 caps 05/09/24
Home Medication Changes
cephalexin 500 mg capsule 500 mg PO QID 4 days #16 caps 05/09/24
Pending Results: No
--- NOTE | 2024-05-09 13:23 | CM ---
Tc acevedo [facility] will see patient in the morning to evaluate and discuss ETOH rehab
[2024-05-09 13:45] LABS: Creatine Phosphokinase 497 U/L (55-170)
[2024-05-09 15:00] VITALS: BP 138/95
[2024-05-09] MEDS: ROXICODONE 5 MG PO ×2 (15:33→19:40)
[2024-05-09 16:55] LABS: Glucose - Point of Care 87 mg/dl (70-99)
[2024-05-09] MEDS: NOVOLOG FLEXPEN SC (17:25)
[2024-05-09 19:13] VITALS: BP 144/89
[2024-05-09 21:22] LABS: Glucose - Point of Care 109 mg/dl (70-99)
[2024-05-09] MEDS: LANTUS 0.380000000000000004 UNITS SC (22:08)
[2024-05-09] MEDS: MELATONIN 5 MG PO (23:11)
[2024-05-09 23:24] VITALS: BP 143/96
[2024-05-10] MEDS: ROXICODONE 5 MG PO ×2 (02:52→11:22)
[2024-05-10 03:14] VITALS: BP 136/84
[2024-05-10] MEDS: SYNTHROID 125 MCG PO (05:45)
[2024-05-10] MEDS: LR 1000 IV (05:45)
[2024-05-10] MEDS: ANCEF 10 IV (05:45)
[2024-05-10 06:05] LABS: Hematocrit 35.1 % (39.0-52.0); Hemoglobin 12.4 g/dL (13.0-18.0); Mean Corp Hgb Conc. 35.3 g/dL (33.0-37.0); Mean Corpuscular Hgb 31.2 pg (27.0-31.0); Mean Corpuscular Volume 88.4 fL (80.0-94.0); Mean Platelet Volume 10.3 fL (7.4-10.4); Platelet Count 236 10^3/uL (130-400); Red Blood Cell Count 3.97 10^6/uL (4.70-6.10); Red Cell Dist. Width 11.7 % (11.5-14.5); White Blood Cell Count 9.2 10^3/uL (4.8-10.8)
[2024-05-10 06:27] LABS: ALT (SGPT) 35 U/L (0-50); AST (SGOT) 77 U/L (17-59); Albumin 3.6 g/dl (3.5-5.0); Alkaline Phosphatase 90 U/L (38-126); Blood Urea Nitrogen 12 mg/dl (9-20); Calcium 9.6 mg/dl (8.4-10.2); Carbon Dioxide 27 mmol/L (22-30); Chloride 100 mmol/L (98-107); Creatine Phosphokinase 270 U/L (55-170); Estimated Creatinine Clearance > 125 ml/min; Glucose 98 mg/dl (70-99); Potassium 3.7 mmol/L (3.5-5.1); Sodium 137 mmol/L (135-145); Total Bilirubin 0.5 mg/dl (0.2-1.3); Total Protein 6.5 g/dl (6.3-8.2); eGFR > 60.00
--- NOTE | 2024-05-10 06:40 | PTCARENOTE ---
LR IVF stopped at this time. L wrist IV with difficulty flushing and pump unable to infuse fluids due to occlusion. Per IV team overnight, was able to place 24 gauge to L wrist, and if unable to run fluids, will have to wait till dayshift for
possible midline if needed.
[2024-05-10 07:00] VITALS: BP 149/90
[2024-05-10 07:57] LABS: Glucose - Point of Care 120 mg/dl (70-99)
--- NOTE | 2024-05-10 08:00 | W.PN.HOSP.TC ---
Addendum entered and electronically signed by Rodney Gómez MD 05/11/24 07:53:
SIRS of noninfectious orgin with acute organ dysfunction, such as renal or respiratory failure
Addendum entered and electronically signed by Rodney Gómez MD 05/10/24 11:26:
Total time spent on d/c = 33 min. This included today's physical exam, progress note, review of laboratory and diagnostic data, preparation of discharge documents and prescriptions, and discussions about the pt's hospital course and discharge plan
with the patient and other director of medical staff services involved in the patient's care.
Original Note:
Today's Communication/Plan
-
see bold
Assessment / Plan
Assessment / Plan
43-year-old male past medical history of prior alcohol withdrawal seizure presents with seizure. Sister noted seizure in the morning, associated with unresponsiveness and stiffening of extremities.
Gen: NAD, AAOx3.
Eyes: EOMI, PERRLA, no scleral icterus.
Neck: supple.
CV: RRR, +S1/S2, no m/r/g.
Resp: CTAB, no rales, wheezes, or rhonchi.
Abd: +BS, soft, NT, ND
Skin: mild R hand cellulitis
Neuro: CN 2-12 intact, non-focal.
Psych: Normal mood and affect.
05/07/24 10:48 Blood/Venous Blood Culture - Preliminary
No Growth in 48 hours- Final report to follow
05/07/24 10:48 Blood/Venous Blood Culture - Preliminary
No Growth in 48 hours- Final report to follow
Seizures:
-Most likely prolonged Methamphetamine use related, patient denies recent alcohol use
-SIRS (likely noninfectious and reactive due to seizures, Methamphetamine), BCxs NGTD
-with tongue laceration
-Neurology saw in consult
-EEG, CT head unremarkable
-As needed Ativan for epileptic seizure
-Will avoid starting a new long-term seizure medication
-Psych saw in c/s Broached on topic to pursue D&A treatment or do a PHP program/outpatient mental health follow up is his and he is refusing at this time.
R hand cellulitis:
-cont Ancef, switch to Keflex on d/c
MT, hypernatremia, and Rhabdomyolysis:
-likely due to seizure activity and dehydration, resolved with IVFs
Other problems:
Essential Hypertension: cont ACEi/BB
DM2 with diabetic neuropathy: a1c 5.9%, cont Lantus/Novolog/SSI/accuchecks, neurontin
GERD: cont PPI
Hypothyroidism: cont Synthroid
Polysubstance abuse
FULL/Heparin
Medically cleared for discharge. Case management aware.
Anticipated Discharge: Today
Subjective/Interval History
-
Date of Service: May 10, 2024
Objective Data
-
Labs:
Laboratory Results
05/10/24
05:20
WBC 9.2
Hgb 12.4 L
Hct 35.1 L
Plt Count 236
Sodium 137
Potassium 3.7
Chloride 100
Carbon Dioxide 27
BUN 12
Creatinine 0.6 L
Glucose 98
Calcium 9.6
Total Bilirubin 0.5
AST 77 H
ALT 35
Alkaline Phosphatase 90
Vital Signs:
Vital Signs
Temp Pulse Resp BP Pulse Ox
98.4 F 75 18 136/84 95
05/10/24 03:14 05/10/24 03:14 05/10/24 03:14 05/10/24 03:14 05/10/24 03:14
I&O
05/09/24 05/10/24 05/11/24
06:59 06:59 06:59
Intake Total 4370 / 4370 2120 / 2120
Output Total 1775 / 1775 3410 / 3410
Balance 2595 / 2595 -1290 / -1290
[2024-05-10] MEDS: PROTONIX 40 MG PO (08:29)
[2024-05-10] MEDS: NEURONTIN 600 MG PO (08:29)
[2024-05-10] MEDS: MYCOSTATIN ORAL SUSPENSION 5 ML PO (08:29)
[2024-05-10] MEDS: LIPITOR 20 MG PO (08:29)
[2024-05-10] MEDS: EFFEXOR XR 150 MG PO (08:29)
[2024-05-10] MEDS: ZESTRIL 20 MG PO (08:29)
[2024-05-10] MEDS: FOLVITE 1 MG PO (08:29)
[2024-05-10] MEDS: TOPROL XL 25 MG PO (08:30)
[2024-05-10] MEDS: NOVOLOG FLEXPEN 8 UNITS SC (08:30)
[2024-05-10] MEDS: HEPARIN 5000 UNITS SC (08:30)
[2024-05-10] MEDS: TYLENOL 650 MG PO (09:05)
[2024-05-10 10:59] VITALS: BP 126/71; PULSE 71; O2SAT 96
[2024-05-10 11:00] VITALS: BP 126/85
[2024-05-10 11:20] LABS: Glucose - Point of Care 181 mg/dl (70-99)
--- NOTE | 2024-05-10 11:33 | CM ---
Md indicated ready for dc today .
Spoke with Tc from [facility] he was given background information.
Tc saw pt Pt refused all in and out pt recourses for alcohol and drug rehab.Pt was given written information by [facility].
Spoke with pt he said he was ready for discharge to home.
PT saw pt . Out pt PT recommendation given. Ask pt if he needed MD to write out pt script. Pt said he will set up his own out pt PT and will ask his MD to write script.
His mom Elise will drive him home.
PLAN Home with no needs
--- NOTE | 2024-05-10 14:20 | PN.CDI ---
CDI
- -
CDI:
Physician Documentation Request
Admit Date: 05/07/24 12:15
Dear Doctor Rico,
Please review the following and provide your response in the progress notes.
Clinical Indicators:
Pt. admitted with seizures, and MT
05/07 H&P note: SIRS with most likely noninfectious source
05/09 PN: 'SIRS with most likely noninfectious source
� Most likely reactive in setting of seizures, Methamphetamine'
Selected Entries
05/07/24
08:45 05/07/24
11:45 05/08/24
07:18
Pulse 118 100 110
05/07/24 05/08/24
08:50 07:13
WBC 20.2 H 18.3 H
Please clarify which most accurately describes the patient:
SIRS of noninfectious orgin with acute organ dysfunction, such as renal or respiratory failure
SIRS of noninfectious origin w/o acute organ dysfunction
Other
Use of terms such as suspected, likely, concern for, or probable (associated with a specific diagnosis that is being evaluated, monitored, or treated as if it exists) are acceptable and can be coded in the inpatient setting, when documented at the
time of discharge.
Thank you,
Esthela Biggs RN, BSN
CDI Specialist
Available via [employer]
Please use your independent medical judgment in providing your response.
--- NOTE | 2024-05-11 11:05 | CON.NEURO4 ---
Consultation - Neurology 4
-
CONSULTING PHYSICIAN: Junior Peañ MD(Neurology)
REFERRING PHYSICIAN: Hospitalist
DICTATED BY: Junior Peña
DATE/TIME OF REQUEST: May 11, 2024
DATE/TIME OF CONSULTATION: May 11, 2024
Reason for Consultation: Seizure
History of Present Illness:
This is a 43 year old right handed male who has presented to the hospital with recurrent seizures. He gives a past history of previous alcohol abuse, hypertension, diabetes, anxiety/depression, methamphetamine use, seizure presented to hospital
after seizure event witnessed by his sister. The event appeared to be generalized seizure with generalized stiffening. EMS was called and they noted short lasting seizure this morning around 730. He was given levetiracetam 3000 mg total in the ER.
He had undergone an EEG on May 07 that was within normal limits with a background frequency of 10 to 11 Hz.
Patient relates that he has been using methamphetamine most days of the week, denies any active alcohol use. He is unclear on if he is having seizures recently, he has poor recall of a previous hospitalization in August 2021 and had a witnessed
focal and later generalized seizure and was monitored on continuous EEG for short period. He relates that he does take gabapentin for muscle pain but does not take any levetiracetam or chronic antiseizure medications otherwise.
Following discharge yesterday he had another episode
Past Medical History: Hypertension diabetes anxiety and drug use
Surgical History: Appendectomy
Family History: Noncontributory
Social History: Unemployed lives at home with his mother
Allergies: None
Home Medications: Keppra
folic acid 1 mg tablet 1 mg PO DAILY 06/11/21
pantoprazole 40 mg tablet,delayed release 40 mg PO DAILY #30 tabs 06/11/21
venlafaxine 150 mg capsule,extended release 24 hr (Effexor XR) 150 mg PO DAILY Mental Health/Anxiety 08/29/21
atorvastatin 20 mg tablet 20 mg PO DAILY 05/07/24
gabapentin 600 mg tablet 600 mg PO TID 05/07/24
insulin glargine 100 unit/mL (3 mL) subcutaneous pen (Lantus Solostar U-100 Insulin) 38 unit SC HS 05/07/24
insulin lispro 100 unit/mL subcutaneous pen 8 unit SC AC 05/07/24
levothyroxine 125 mcg tablet 125 mcg PO DAILY 05/07/24
lisinopril 20 mg tablet 20 mg PO DAILY 05/07/24
metoprolol succinate 25 mg tablet,extended release 24 hr 25 mg PO DAILY 05/07/24
Review of Symptoms:
Patient denies any fever, headache, chest pain, shortness of breath, GI or symptoms.
�Per the HPI.�All systems are reviewed negative except above.
�
Vital Signs: Temp Pulse Resp BP Pulse Ox
36.6 C 67 18 126/85 98
05/10/24 11:00 05/10/24 11:00 05/10/24 11:00 05/10/24 11:00 05/10/24 11:00
Physical Exam:
The patient is afebrile, heart sounds S1 and S2 are (regular / irregular), and chest is clear to auscultation bilaterally.
Neurologic Examination:
The patient is awake, alert and oriented x 3. (He/She) is able to follow commands and answer questions appropriately. There is no aphasia or dysarthria. On cranial nerve assessment, pupils are 3 mm bilateral, round and reactive to light and
accommodation. Visual [place] are full. Extraocular movements are intact. Facial sensations are intact and bilaterally symmetrical, there is no facial asymmetry. Hearing is intact bilaterally to normal conversation volume. Tongue palate and uvula
are midline. Sternocleidomastoid strengths are full bilaterally. Motor strengths are 5/5 bilateral upper and lower extremities on medical research [place] scale. There is no drift or involuntary movement noted. Deep tendon reflexes are 2+ bilateral
upper and lower extremities and Babinski is absent bilaterally. Sensations of pain, touch, temperature and vibration are intact and bilaterally symmetrical. There was no extinction noted on double simultaneous stimulation. Coordination is intact by
finger to nose bilaterally.
Lab Results:
05/10/24 05:20
Sodium 137 mmol/L (135-145) 05/10/24 05:20
Potassium 3.7 mmol/L (3.5-5.1) 05/10/24 05:20
BUN 12 mg/dl (9-20) 05/10/24 05:20
Glucose 98 mg/dl (70-99) 05/10/24 05:20
Calcium 9.6 mg/dl (8.4-10.2) 05/10/24 05:20
Ur Buprenorphine Negative (Negative) 05/07/24 16:11
Neuro Imaging: CT head was within normal limits(May 07)
Impression:
Mr. MITCHELL GIMENEZ is a 43 year old M who has presented to the hospital with history of amphetamine use and recurrent seizures
Recommendations:
1. Keppra 1000mg twice a day
2. Stop using amphetamines
3. Do not drive
4. Continue current medical therapies
Discussed patient care with:
Vital Signs and Labs
-
Vital Signs and Labs:
Vital Signs
Temp Pulse Resp BP Pulse Ox
36.6 C 67 18 126/85 98
05/10/24 11:00 05/10/24 11:00 05/10/24 11:00 05/10/24 11:00 05/10/24 11:00
Lab Results
05/10/24 05:20
05/10/24 05:20
Sodium 137 mmol/L (135-145) 05/10/24 05:20
Potassium 3.7 mmol/L (3.5-5.1) 05/10/24 05:20
BUN 12 mg/dl (9-20) 05/10/24 05:20
Glucose 98 mg/dl (70-99) 05/10/24 05:20
Calcium 9.6 mg/dl (8.4-10.2) 05/10/24 05:20
Ur Buprenorphine Negative (Negative) 05/07/24 16:11
--- NOTE | 2024-05-11 18:09 | W.DCSUMMARY ---
Discharge Summary
Discharge Data
Date of Admission: 05/07/24
Date of Discharge: 05/10/24
-
Pending Results: No
Hospital Course
Primary diagnoses:
Seizures likely due to methamphetamine abuse
Systemic inflammatory response syndrome of noninfectious origin with acute kidney injury
Hypernatremia
Rhabdomyolysis
Secondary diagnoses:
Essential Hypertension
Type 2 diabetes mellitus with diabetic neuropathy
Gastroesophageal reflux disease
Hypothyroidism
Polysubstance abuse
Consultants:
Neurology
Imaging:
CT brain: Normal
EEG: This EEG is normal during the awake and sleep states
43-year-old male who presented with chief complaint of seizures as outlined in the H&P done on admission. Hospital course per problem list:
Seizures: Patient seizures were most likely due to prolonged Methamphetamine use. Neurology is on consultation. EEG and CT scan of the brain were unremarkable. Neurology recommended not placing the patient on antiepileptic drugs. Drug and
alcohol rehab was offered to the patient but he declined.
R hand cellulitis: Patient was placed on IV Ancef and switched to oral Keflex on discharge.
MT, hypernatremia, and Rhabdomyolysis: These were likely due to seizure activity and dehydration and resolved/improved with IVFs.
Discharge Plan
-
Patient Disposition: Home (Routine Discharge)
Discharge Diagnosis/Procedures: Seizures most likely due to prolonged Methamphetamine use, right hand cellulitis, acute kidney injury, rhabdomyolysis
Condition: Good
Diet: Low Fat, Low Cholesterol and Diabetic, Carb Controlled
Activity: As tolerated
Driving Restrictions: No driving
Bathing Restrictions: None
Blood Work: cbc, bmp in 1 week with pcp
Activity Restrictions/Additional Instructions:
please avoid/stop any drug use
Referrals:
Ivan Quinones MD [Family Provider] - in less than 1 week
Prescriptions:
Continued
venlafaxine [Effexor XR] 150 MG capsule,extended release 24hr
150 mg PO DAILY
gabapentin 600 mg Tablet
1,200 mg PO TID
atorvastatin 20 mg Tablet
20 mg PO DAILY
lisinopril 20 mg Tablet
20 mg PO DAILY
levothyroxine 125 mcg Tablet
125 mcg PO DAILY
metoprolol succinate 25 mg Tablet Extended Release 24 Hr
25 mg PO DAILY
insulin lispro 100 unit/mL Insulin Pen
8 unit SC AC
insulin glargine [Lantus Solostar U-100 Insulin] 100 unit/mL (3 mL) Insulin Pen
38 unit SC HS
pantoprazole 40 MG tablet,delayed release (DR/EC)
40 mg PO DAILY
folic acid 1 MG tablet
1 mg PO DAILY
No Action
cephalexin 500 mg capsule
500 mg PO Q6H
Patient Comments:
patient started on 05/10/24 x7days
levetiracetam [Keppra] 1,000 mg tablet
1,000 mg PO BID Qty: 60 0RF
prochlorperazine maleate [Compazine] 10 mg tablet
10 mg PO Q8H PRN (Reason: anxiety) Qty: 14 0RF
Discharge Orders:
Discharge Patient (As Directed); Ordered 05/10/24
Ordered By: Rodney Gómez
Discharge Date and Time
Discharge Date/Time: 05/10/24 13:39
Print Language: BAHRAINI
== END 2024-05-10 13:39 | disposition home or self-care (01) | DRG 917 ==
LOC: 3 WEST ACU 12:15
PROVIDERS: ADMITTING PHYSICIAN Internal Medicine; ATTENDING PHYSICIAN Internal Medicine; CONSULT PHYSICIAN Student in an Organized Health Care Education/Training Program; EMERGENCY PHYSICIAN Emergency Medicine; FAMILY PHYSICIAN Family Medicine; OTHER PHYSICIAN Psychiatry & Neurology Neurology
DX: T43.651A Poisoning by methamphetamines accidental (unintentional), initial encounter (principal); R65.11 Systemic inflammatory response syndrome (SIRS) of non-infectious origin with acute organ dysfunction; E87.0 Hyperosmolality and hypernatremia; M62.82 Rhabdomyolysis; L03.113 Cellulitis of right upper limb; N17.8 Other acute kidney failure; B37.0 Candidal stomatitis; R56.9 Unspecified convulsions; I12.9 Hypertensive chronic kidney disease with stage 1 through stage 4 chronic kidney disease, or unspecified chronic kidney disease; E11.22 Type 2 diabetes mellitus with diabetic chronic kidney disease; N18.9 Chronic kidney disease, unspecified; E11.40 Type 2 diabetes mellitus with diabetic neuropathy, unspecified; K21.9 Gastro-esophageal reflux disease without esophagitis; F41.1 Generalized anxiety disorder; R00.0 Tachycardia, unspecified; M25.511 Pain in right shoulder; F10.91 Alcohol use, unspecified, in remission; E03.9 Hypothyroidism, unspecified; S01.512A Laceration without foreign body of oral cavity, initial encounter; E86.0 Dehydration; F17.200 Nicotine dependence, unspecified, uncomplicated; F15.10 Other stimulant abuse, uncomplicated; F32.9 Major depressive disorder, single episode, unspecified; X58.XXXA Exposure to other specified factors, initial encounter; Z79.4 Long term (current) use of insulin; Z79.890 Hormone replacement therapy; Z81.4 Family history of other substance abuse and dependence; Z79.899 Other long term (current) drug therapy
CPT/HCPCS: 70450; 73030; 80053; 80306; 80307; 81003; 81015; 82550; 82962; 83036; 83735; 84439; 84443; 85025; 85027; 87040; 92610; 93005; 95812; 96361; 96374; 97162; 97167; 97530; 97535; 99285; 99406

== ENCOUNTER 2024-05-11 04:53 | Emergency (ER) | payer OTHER, SELFPAY ==
[2024-05-11] VITALS (8 sets, daily range): BP systolic 105–114; BP diastolic 67–82; BMI 33.5
[2024-05-11 05:24] LABS: % Basophils 0.3 % (0-2); % Eosinophils 2.1 % (0-6); % Immature Granulocytes 0.7 % (0-0.5); % Lymphocytes 16.3 % (20.5-51.1); % Monocytes 7.1 % (1.7-9.3); % Neutrophils 73.5 % (42.2-75.2); Absolute Eosinophils 0.3 10^3/uL (0-0.7); Absolute Immature Granulocytes 0.1 10^3/uL (0-0.05); Absolute Lymphocytes 1.9 10^3/uL (1.2-3.4); Absolute Monocytes 0.8 10^3/uL (0.1-0.6); Absolute Neutrophils 8.7 10^3/uL (1.4-6.5); Hematocrit 40.4 % (39.0-52.0); Hemoglobin 13.6 g/dL (13.0-18.0); Mean Corp Hgb Conc. 33.7 g/dL (33.0-37.0); Mean Corpuscular Hgb 30.9 pg (27.0-31.0); Mean Corpuscular Volume 91.8 fL (80.0-94.0); Mean Platelet Volume 10.2 fL (7.4-10.4); Nucleated Red Blood Cells % 0 % (-); Platelet Count 294 10^3/uL (130-400); Red Cell Dist. Width 11.7 % (11.5-14.5); White Blood Cell Count 11.9 10^3/uL (4.8-10.8)
[2024-05-11 05:39] LABS: AST (SGOT) 65 U/L (17-59); Albumin 4.4 g/dl (3.5-5.0); Alkaline Phosphatase 99 U/L (38-126); Blood Urea Nitrogen 9 mg/dl (9-20); Calcium 10.3 mg/dl (8.4-10.2); Carbon Dioxide 20 mmol/L (22-30); Chloride 103 mmol/L (98-107); Estimated Creatinine Clearance > 125 ml/min; Glucose 168 mg/dl (70-99); Potassium 3.8 mmol/L (3.5-5.1); Sodium 142 mmol/L (135-145); Total Bilirubin 0.5 mg/dl (0.2-1.3); Total Protein 7.3 g/dl (6.3-8.2); eGFR > 60.00
[2024-05-11] MEDS: ATIVAN 1 MG IV (05:48)
[2024-05-11 05:49] LABS: ALT (SGPT) 42 U/L (0-50)
[2024-05-11] MEDS: KEPPRA 2000 MG IV (05:49)
[2024-05-11 06:55] LABS: Creatine Phosphokinase 309 U/L (55-170)
[2024-05-11 06:59] LABS: Alcohol None Detected
--- NOTE | 2024-05-11 08:36 | ED.GENMED ---
History of Present Illness
General
Chief Complaint: Seizure
Source: patient and previous hospital records (Recent hospitalization May 07 until yesterday May 10 for evaluation of seizures.)
Exam Limitations: clinical condition
Time Seen by Provider: 05/11/24 05:48
History of Present Illness
History of Present Illness:
This is a 43-year-old gentleman who was recently hospitalized May 07 until yesterday May 10 after he was witnessed to have a grand mal seizure by family at home and then additional grand mal seizure witnessed by EMS en route to the hospital.
Seizure subsided with IV Ativan and he was loaded with IV Keppra during ED evaluation.
He apparently has a history of seizure disorder and had been hospitalized here in 2019 as well as 2020 for episodes of seizures.
He has remote history of alcohol abuse but reports sobriety for a while but he also has history of methamphetamine abuse and although reportedly has been clean from methamphetamine for several weeks urine drug screen on May 07 was positive for
amphetamine and methamphetamine.
During hospitalization most recently was treated for acute kidney injury with creatinine of 2.2.
Evaluated by neurology and underwent EEG that did not show definitive seizure activity. Neurologic testing was negative and he was discharged yesterday and not prescribed antiseizure medicines.
He returns via EMS after family witnessed a grand mal seizure, similar to seizure that brought him in on May 07.
He was not incontinent of bowel nor bladder but he did bite his tongue and similar tongue bite noted May 07.
According to nursing staff patient initially moderately restless but awake and answering questions appropriately
He was then witnessed by nursing staff and myself to suffer a grand mal seizure, sonorous respirations, eyes deviated up, stiffened posture. Seizure lasted approximately 2 minutes and resolved. He did suffer a deep abrasion to the right side of
his tongue. He was not incontinent of bowel nor bladder.
Initial evaluation, pt is post ichtal state.
Past History
Past History
ED Past Medical History: GERD, HTN, NIDDM, Seizures, Hypothyroidism, Psychiatric (generalized anxiety disorder, major depression) and Other (gout, frequent headaches, ETOH abuse, Pancreatitis, avascular necrosis of the right hip)
ED Past Surgical History: Appendectomy and Other (cyst removal)
Social History
Tobacco: Smoker
Alcohol: Binge drinker
Drug: Other (methamphetamines)
Personal: Single
Living: with family (mother)
Employment: Not employed
Family History
Family History: CAD
Phy Exam
Physical Exam
Physical Exam:
GENERAL: 43-year-old obese gentleman appears older than stated age. Initially noted to have grand mal seizure, stiffened posture, eyes deviated upward, bloody drainage from mouth, sonorous respirations, mildly cyanotic. Seizure lasted
approximately 2 minutes and resolved while IV Ativan being administered. He is currently postictal state, moderately somnolent, withdraws to painful stimuli and briefly opens his eyes but otherwise did not follow commands.
EYE: pupils equal and reactive. anicteric
NECK: Supple, nontender, no meningismus, no significant adenopathy.
ENT: Linear deep abrasion right lateral tongue, no active bleeding. There is scant blood to the lips but no evidence of lip laceration. TM clear b/l, nares patent.
CARDIAC: Regular rate and rhythm. no murmur.
LUNGS: Clear breath sounds bilaterally, no acute respiratory distress, no wheezes/rales/rhonchi
ABDOMEN: Rotund, soft, nondistended, without focal tenderness
NEUROLOGICAL: Obtunded post grand mal seizure, no focal neuro deficits.
SKIN: Warm and dry, normal color, skin intact. No rash.
MUSCULOSKELETAL: No C/C/E. peripheral pulses are full and equal b/l. No palpable tenderness.
PSYCH: Unable to obtain.
Course
Orders/Labs/Results
Orders:
Orders
05/11/24 05:13
Alcohol Urgent
CMP [Comprehensive Metabolic Panel] Urgent
Complete Blood Count/With Diff Urgent
Creatine Phosphokinase Urgent
Comment: ADD ON
05/11/24 05:38
Lorazepam [Ativan] 2 mg .ROUTE .STK-MED ONE
05/11/24 05:42
Lorazepam [Ativan] 1 mg IV NOW STA
05/11/24 05:44
Levetiracetam Injectable [Keppra] 2,000 mg IV NOW STA
05/11/24 05:45
Levetiracetam Injectable [Keppra] 1,000 mg .ROUTE .STK-MED ONE
05/11/24 05:47
Add On- LAB Urgent
Tests Added?: alcohol, CPK
05/11/24 05:54
Levetiracetam Injectable [Keppra] 1,000 mg .ROUTE .[employer]-MED ONE
05/11/24 08:42
Ondansetron Orally Disint [Zofran Odt (Orally Disintegrating)] 4 mg PO NOW STA
05/11/24 08:43
Ondansetron Orally Disint [Zofran Odt (Orally Disintegrating)] 4 mg .ROUTE .STK-MED ONE
Abnormal Lab Results
05/11/24
05:13
WBC 11.9 H 10^3/uL
(4.8-10.8)
RBC 4.40 L 10^6/uL
(4.70-6.10)
Abs Immat Gran (auto) 0.1 H 10^3/uL
(0-0.05)
Absolute Neuts (auto) 8.7 H 10^3/uL
(1.4-6.5)
Absolute Monos (auto) 0.8 H 10^3/uL
(0.1-0.6)
Immature Gran % 0.7 H %
(0-0.5)
Lymphocytes % 16.3 L %
(20.5-51.1)
Carbon Dioxide 20 L mmol/L
(22-30)
Glucose 168 H mg/dl
(70-99)
Calcium 10.3 H mg/dl
(8.4-10.2)
AST 65 H U/L
(17-59)
Creatine Kinase 309 H U/L
(55-170)
05/11/24 05:13
05/11/24 05:13
Vital Signs
Initial and Last Documented VS:
Initial Vital Signs
Temp Pulse Resp BP Pulse Ox
98.4 F 74 18 109/74 92
05/11/24 04:56 05/11/24 04:56 05/11/24 04:56 05/11/24 04:56 05/11/24 04:56
Last Documented Vital Signs
Temp Pulse Resp BP Pulse Ox
98.4 F 72 19 105/82 97
05/11/24 04:56 05/11/24 08:00 05/11/24 08:00 05/11/24 08:00 05/11/24 08:00
MDM/Problems Addressed
Differential Diagnosis Includes:
Patient presents with recurrent grand mal seizure after discharge yesterday for similar complaint.
He is he has been given an IV dose of Ativan and will load with IV Keppra due to recurrent grand mal seizures.
There has been some concern for methamphetamine related seizures versus epilepsy.
He has history of insulin requiring diabetes. Accu-Chek 160. There has been no episodes of hypoglycemia.
Labs show normal renal function. Prior acute kidney injury has resolved. Mild acidosis with CO2 of 20. Will check CPK due to recurrent seizure activity, concern for rhabdomyolysis. CBC is unremarkable.
Will continue to observe until awake and alert.
Chronic conditions affecting care: DM, Neurological disorder and Psychiatric illness
*Pulse Oximetry
Patient hypoxic: no
*Addiction Professional Interpretation
Rate: tachycardiac
Interpretation: abnormal
Rhythm: sinus
*Critical Care Note
Total Time (30-74mins, 75-104mins- exclusive of procedures): Not Applicable
Update Note
Update Note:
05/11/2024 0901 AM
Patient has been awake and alert, initially offering no complaints and no recurrent seizures. Initial plan was to discharge to home after discussion with neurology but patient has become somewhat more restless overall not feeling well, nauseous but
has had no vomiting.
Due to overall not feeling well, nausea, restlessness concern for potential withdrawal versus side effect of Keppra versus post seizure syndrome.
Will admit to hospital service to continue close observation, concern for recurrent seizure activity, concern for substance abuse withdrawal syndromes.
ED Attending Note
-
Portions of this chart may have been created with voice recognition software.� Occasional wrong word or��sound alike� substitutions may have occurred due to the inherent limitations of voice recognition software.
Discharge Plan
Departure
Patient Disposition: Admit
Date of Disposition: 05/11/24
Time of Disposition: 09:02
Admit to: Telemetry
Presentation/result/management discussed w/ accepting MD/DO: Hospitalist
Condition: Fair
Discharge Problem:
Recurrent grand mal seizure
Prescriptions:
No Action
venlafaxine [Effexor XR] 150 MG capsule,extended release 24hr
150 mg PO DAILY
gabapentin 600 mg Tablet
600 mg PO TID
atorvastatin 20 mg Tablet
20 mg PO DAILY
lisinopril 20 mg Tablet
20 mg PO DAILY
levothyroxine 125 mcg Tablet
125 mcg PO DAILY@0600
metoprolol succinate 25 mg Tablet Extended Release 24 Hr
25 mg PO DAILY
insulin lispro 100 unit/mL Insulin Pen
8 unit SC AC
insulin glargine [Lantus Solostar U-100 Insulin] 100 unit/mL (3 mL) Insulin Pen
38 unit SC HS
pantoprazole 40 MG tablet,delayed release (DR/EC)
40 mg PO DAILY
folic acid 1 MG tablet
1 mg PO DAILY
cephalexin 500 mg capsule
500 mg PO Q6H 7 Days Qty: 28 0RF
Referrals:
Ivan Quinones MD [Family Provider] -
Interventions
Interventions:
*Risk Screen - Suicide Last Done: 05/11/24 04:56
*General Assessment Last Done: 05/11/24 04:56
*Neglect/Abuse Screening Last Done: 05/11/24 04:56
ED- Fall Risk Assessment Last Done: 05/11/24 04:56
*ED COVID-19 Vaccine History Last Done: 05/11/24 04:56
ED- Cardiac Assessment Last Done: 05/11/24 07:18
ED- Neurological Assessment Last Done: 05/11/24 05:00
ED- Pulmonary Assessment Last Done: 05/11/24 07:18
Discharge Date and Time
Print Language: MALAY
[2024-05-11] MEDS: ZOFRAN ODT (ORALLY DISINTEGRATING) 4 MG PO (08:44)
[2024-05-11] MEDS: ZOFRAN 4 MG IV (11:02)
[2024-05-11] MEDS: COMPAZINE 10 MG IV (11:52)
== END 2024-05-11 13:54 | disposition home or self-care (01) ==
LOC: EMR 04:53
PROVIDERS: Emergency Medicine; CONSULT PHYSICIAN Student in an Organized Health Care Education/Training Program; EMERGENCY PHYSICIAN Emergency Medicine; FAMILY PHYSICIAN Family Medicine
DX: G40.409 Other generalized epilepsy and epileptic syndromes, not intractable, without status epilepticus (principal); F17.200 Nicotine dependence, unspecified, uncomplicated
CPT/HCPCS: 99284; 96374; 96375 ×3; 80053; 82077; 82550; 85025

== ENCOUNTER 2025-01-17 17:44 | Emergency (ER) | payer OTHER, SELFPAY ==
[2025-01-17 17:57] VITALS: BP 123/80
--- NOTE | 2025-01-17 18:07 | ED.GENMED ---
ED Provider Triage
-
Patient seen by provider in Triage?: Seen in Triage
Attestation: A medical screening examination has been initiated by a qualified medical provider. Based on the assessment performed at this time, it has been determined that an emergent medical condition may exist and the patient has been informed
that further medical evaluation and possible additional diagnostic testing may be needed.
HPI: 44-year-old male presents to the ER complain right foot laceration to the top of his right foot from glass. Unsure of last tetanus shot. Pt is a type one diabetic
GENERAL: Alert , in no apparent distress
EYE: No visual abnormalities.
NECK: Trachea midline
ENT: No visible abnormalities.
LUNGS: No acute respiratory distress
NEUROLOGICAL: Alert and oriented
SKIN: Skin intact. No visible changes.
MUSCULOSKELETAL: Pt with small laceration to right foot along first MTP joint no active bleeding
PSYCH: Normal and appropriate interaction.
This is a medical evaluation conducted in person to initiate diagnostic evaluation and provide initial therapeutics. Please see further documentation by the treating clinician.
History of Present Illness
General
Chief Complaint: Skin Surface Trauma
Time Seen by Provider: 01/17/25 19:10
Past History
Past History
ED Past Medical History: GERD, HTN, NIDDM, Seizures, Hypothyroidism, Psychiatric (generalized anxiety disorder, major depression) and Other (gout, frequent headaches, ETOH abuse, Pancreatitis, avascular necrosis of the right hip)
ED Past Surgical History: Appendectomy and Other (cyst removal)
Social History
Tobacco: Smoker
Alcohol: Binge drinker
Drug: Other (methamphetamines)
Personal: Single
Living: with family (mother)
Employment: Not employed
Family History
Family History: CAD
Course
Orders/Labs/Results
Orders:
Orders
01/17/25 18:08
Cephalexin Monohydrate [Keflex] 500 mg PO NOW STA
Tetanus/Diphth/Acelpertussis [Adacel] 0.5 ml IM .ONCE ONE
Foot, Right 3 View [CR Foot - Right Min 3 Views] Urgent
Comment:
Reason For Exam: possible foreign body
Vital Signs
Initial and Last Documented VS:
Initial Vital Signs
Temp Pulse Resp BP Pulse Ox
97.6 F 86 18 123/80 99
01/17/25 17:57 01/17/25 17:57 01/17/25 17:57 01/17/25 17:57 01/17/25 17:57
Last Documented Vital Signs
Temp Pulse Resp BP Pulse Ox
97.6 F 86 18 123/80 99
01/17/25 17:57 01/17/25 17:57 01/17/25 17:57 01/17/25 17:57 01/17/25 17:57
Update Note
Update Note:
When patient was called to the treatment area there were no response multiple times
ED Attending Note
-
Portions of this chart may have been created with voice recognition software.� Occasional wrong word or��sound alike� substitutions may have occurred due to the inherent limitations of voice recognition software.
Discharge Plan
Departure
Patient Disposition: Elopement
Prescriptions:
No Action
venlafaxine [Effexor XR] 150 MG capsule,extended release 24hr
150 mg PO DAILY
gabapentin 600 mg Tablet
1,200 mg PO TID
atorvastatin 20 mg Tablet
20 mg PO DAILY
lisinopril 20 mg Tablet
20 mg PO DAILY
levothyroxine 125 mcg Tablet
125 mcg PO DAILY
metoprolol succinate 25 mg Tablet Extended Release 24 Hr
25 mg PO DAILY
insulin lispro 100 unit/mL Insulin Pen
8 unit SC AC
insulin glargine [Lantus Solostar U-100 Insulin] 100 unit/mL (3 mL) Insulin Pen
38 unit SC HS
pantoprazole 40 MG tablet,delayed release (DR/EC)
40 mg PO DAILY
folic acid 1 MG tablet
1 mg PO DAILY
cephalexin 500 mg capsule
500 mg PO Q6H
Patient Comments:
patient started on 05/10/24 x7days
levetiracetam [Keppra] 1,000 mg tablet
1,000 mg PO BID Qty: 60 0RF
prochlorperazine maleate [Compazine] 10 mg tablet
10 mg PO Q8H PRN (Reason: anxiety) Qty: 14 0RF
Interventions
Interventions:
*Risk Screen - Suicide Last Done: 01/17/25 17:57
*Nursing Disposition Last Done: 01/17/25 19:53
Discharge Date and Time
Discharge Date/Time: 01/17/25 19:57
Print Language: WELSH
[2025-01-17] MEDS: ADACEL 0.5 ML IM (18:13)
[2025-01-17] MEDS: KEFLEX 500 MG PO (18:13)
== END 2025-01-17 19:57 | disposition left against medical advice (07) ==
LOC: EMR 17:44
PROVIDERS: EMERGENCY PHYSICIAN Emergency Medicine
DX: S91.311A Laceration without foreign body, right foot, initial encounter (principal); W25.XXXA Contact with sharp glass, initial encounter; E10.9 Type 1 diabetes mellitus without complications; E03.9 Hypothyroidism, unspecified; I10 Essential (primary) hypertension; K21.9 Gastro-esophageal reflux disease without esophagitis; F17.200 Nicotine dependence, unspecified, uncomplicated; Z23 Encounter for immunization; Z53.29 Procedure and treatment not carried out because of patient's decision for other reasons
CPT/HCPCS: 99283; 90471; 73630; 90715

== ENCOUNTER → 2025-05-30 09:02 | Outpatient (REF) | payer OTHER, SELFPAY | LOC: RCS 09:02 | PROVIDERS: ATTENDING PHYSICIAN Physician Assistant | DX: R07.89 Other chest pain (principal); G89.29 Other chronic pain | CPT/HCPCS: 93017; 93350 ==